=== PATIENT | female | born 1950 | race Caucasian/White ===

== ENCOUNTER → 2019-09-10 | Outpatient (CLI) | payer OTHER | LOC: CAT 09:32 | PROVIDERS: ATTEND Family Medicine | DX: Z13.6 Encounter for screening for cardiovascular disorders (principal); I25.10 Atherosclerotic heart disease of native coronary artery without angina pectoris; E78.00 Pure hypercholesterolemia, unspecified ==

== ENCOUNTER → 2020-01-29 | Outpatient (CLI) | payer OTHER | LOC: CAT 10:24 | PROVIDERS: ATTEND Family Medicine | DX: K57.30 Diverticulosis of large intestine without perforation or abscess without bleeding (principal); R19.5 Other fecal abnormalities; M47.816 Spondylosis without myelopathy or radiculopathy, lumbar region; M41.35 Thoracogenic scoliosis, thoracolumbar region; M25.78 Osteophyte, vertebrae ==